=== PATIENT | female | born 1995 | race Caucasian/White ===

== ENCOUNTER 2020-02-24 17:17 | Inpatient (IN) | payer MEDICAID ==
[2020-02-24] MEDS ORDERED: Lactated Ringers 1,000 ML IV SCH (17:20)
[2020-02-24] MEDS ORDERED: Oxytocin/Normal Saline 30 UNIT/500 ML BAG ONE ×2 (17:35→20:21)
[2020-02-24] MEDS ORDERED: Ibuprofen 800 MG Tab ONE (17:52)
[2020-02-24] MEDS ORDERED: Oxytocin 10 Units/1 ML SDV IM PRN (17:59)
[2020-02-24] MEDS ORDERED: Misoprostol 400 MCG (4 X 100 MCG TAB) RECTAL PRN (17:59)
[2020-02-24] MEDS ORDERED: Diphtheria,Pertussis(Acell),Tetanus Vaccine 0.5 ML SDV IM ONE (17:59)
[2020-02-24] MEDS ORDERED: Zolpidem 5 MG Tab PO PRN (17:59)
[2020-02-24] MEDS ORDERED: Measles, Mumps & Rubella Vaccine 0.5 ML SDV SUBCUT ONE (17:59)
[2020-02-24] MEDS ORDERED: Acetaminophen 325 MG Tab PO PRN (17:59)
[2020-02-24] MEDS ORDERED: Simethicone 80 MG Tab.Chew PO PRN (17:59)
[2020-02-24] MEDS ORDERED: Carboprost Tromethamine 250 MCG/1 ML Amp IM PRN (17:59)
[2020-02-24] MEDS ORDERED: Tranexamic Acid 1,000 MG in Sodium Chloride 0.9% 100 ML IV PRN (17:59)
[2020-02-24] MEDS ORDERED: Sodium Chloride 0.9% 10 ML Syringe FLUSH PRN (17:59)
[2020-02-24] MEDS ORDERED: Benzocaine/Menthol 20%-0.5% Spray 56 GM Canister TOP PRN (17:59)
[2020-02-24] MEDS: Docusate Sodium 100 MG Cap PO PRN (20:27)
--- NOTE | 2020-02-25 08:39 | HP ---
PATIENT IDENTIFICATION: Clark Ingram is a 24-year-old, G2, P1-0-0-1, intrauterine , suspected term after Kay scoring of the , who presents after precipitous spontaneous vaginal delivery at home at approximately 1652 hours, brought in via ambulance with no noted care. HISTORY OF PRESENT ILLNESS: The patient states contractions started on the afternoon of 02/24/2020 increasing in frequency and intensity that she had to have the urge to push after she got out of the shower. She delivered at home on the floor with her older female relative, who was there, who is a POKER SUPERVISOR. There was no noted nuchal cords. Delivery was noted to be unremarkable and cord was doubly clamped and cut by ambulance crew upon arrival. Ambulance presented with the patient in the emergency room where she was further evaluated and treated as below. Records were called for, reviewed as below, and supplemented by the patient's history. ANTEPARTUM LABORATORIES: None as no care. OB HISTORY: Delivered 4 years ago in April, a spontaneous vaginal delivery in the [facility], that daughter is with the grandmother and Cheo currently. ALLERGIES: Zithromax and some sort of steroid. MEDICATIONS: None. PAST MEDICAL/PAST SURGICAL HISTORY: Remarkable for appendectomy at 18 years of age. Having a history of bronchitis versus pneumonia versus reactive airway disease when she was a child. She was on Singulair for this and was hospitalized at least once. She denies any recent use of breathing treatments or treatment such as Singulair. FAMILY HISTORY: Denies any anesthesia, bleeding problems, or immunodeficiency. States diabetes and cancer run in her family. SOCIAL HISTORY: The patient currently lives in the [facility]. Has been here since last year in the summer. She was working at [employer] until about November. She does admit to marijuana use. No other drug use elicited. She does smoke cigarettes as well. She denies any alcohol or other drug use. She presents by herself. Her daughter, 4 years of age, lives with grandmother in [facility]. REVIEW OF SYSTEMS: Otherwise reviewed and felt to be noncontributory other than she notes the vaginal delivery and vaginal bleeding upon arrival as well as the ER crew and ambulance. Otherwise, review of systems fully reviewed and felt to be noncontributory. OBJECTIVE: Appearance: Female breathing through her cramps and contractions with on her chest, currently breast feeding with the cord that was doubly clamped and cut, with a plastic clamp on the cord attached to the baby. Vital Signs: Taken in the ambulance were noted to be stable after delivery and on the floor 125/72, heart rate 105, O2 saturations 98%. The patient is afebrile. HEENT: Head atraumatic. EOMs intact. PERRLA. No scleral icterus. No obvious otorhinorrhea. Mucous membranes are moist. Neck: No obvious tenderness. Lungs: Clear to auscultation bilaterally. No increased work of breathing. Heart: S1, S2. Regular rate and rhythm. Minor tachycardia noted at times. Abdomen: Firm uterus was felt upon initial evaluation in the ER while the patient was on the gurney. Genitourinary: Vaginal bleeding was noted and therefore gentle cord traction was applied with fundal massage and placenta was delivered. It appeared to be in its entirety with a bauer of old darkish blood thereafter and then vaginal bleeding slowed significantly with fundal massage after that. Perineum, vagina, perirectal areas were then examined without any tears or lacerations. Extremities: No peripheral edema. Deep tendon reflexes 2 to 3 out of 4 bilaterally and symmetric in lower extremities. Psychiatric: Mood and affect congruent. Judgment and insight intact. Skin: Without any cyanosis, clubbing, or jaundice. LABORATORY DATA: Pending is no care lab panel. Review of chart does not reveal any type of blood type on all [facility] notes and nothing can be found in the [facility] notes from [facility]. ASSESSMENT: 1. Intrauterine -suspected term by Kay score on infant, suspected greater than 39 weeks. 2. Precipitous spontaneous vaginal delivery at home with delivery of placenta in the ER by Dr. Lujan as above. 3. No care. 4. Admitted use of marijuana during the . Urine drug screen is pending. 5. Group B streptococcus unknown. 6. Allergies to Zithromax and some sort of steroid. 7. G2, P1-0-0-1. PLAN: The patient will be admitted. CBC immediately with her no care labs, one to be repeated in the morning. As bleeding has significant decreased and vital signs stable, continue to follow closely at this point in time. I did discuss with the patient that we will need to follow baby and her for at least 48 hours with the history no care, GBS status being unknown, and we will continue to follow clinically and closely for any concerns with a history of drug use in the past for withdrawals in her child as well. The patient understands and agrees with the above treatment plan. [facility] /[id number]
--- NOTE | 2020-02-25 12:33 | PN ---
DATE: 02/25/2020 day #1. SUBJECTIVE: The patient is tolerating p.o., ambulating, urinating, passing flatus, wakes appropriately from sleep this morning. PHYSICAL EXAMINATION: Vital Signs: Heart rate 114, blood pressure 149/80 last night, temperature 98.1. I was called in regard to these blood pressures and labs were done as below. General: No headaches, visual changes, or upper abdominal pain noted. This morning patient wakes from sleep appropriately. Lungs: Clear to auscultation bilaterally. Heart: S1 and S2. Regular rate and rhythm. Abdomen: Firm uterus around -1 below umbilicus. Extremities: No peripheral edema. No calf pain. LABORATORY DATA: Labs from last night. PIH labs remarkable for a uric acid minimally elevated at 7. Urinalysis; 30 protein, 40 ketones, trace occult blood, 5 to 10 red cells, 0 to 5 white cells with a protein-creatinine ratio of 0.189. Urine drug screen positive for methamphetamine, amphetamine, MDMA, and THC with HIV antibodies/antigen negative. Pending are other no care labs. ASSESSMENT AND PLAN: 1. day #1, status post precipitous spontaneous vaginal delivery at home with no care. 2. Urine drug screen positive for methamphetamine, amphetamine, MDMA, and THC. We will need to follow closely. Social Service has been consulted. We will follow her baby closely as well. PLAN: I did discuss with the patient following closely today, possible discharge in approximately 48 hours after delivery tomorrow afternoon, evening, if everything goes well. She understands and agrees with the above treatment plan. In terms of the patient's hypertension, no concerns with preeclampsia noted at this point in time based on labs. We will continue to follow clinically and closely. No indications for treatment as no severe symptoms or severe readings at this point in time. [facility] /[id number]
[2020-02-25] MEDS: Ferrous Sulfate 325 MG Tab PO SCH (12:50)
[2020-02-25] MEDS: Prenatal Multivitamin with Calcium/Folic Acid/Iron Tab PO SCH (12:50)
[2020-02-25] MEDS: Docusate Sodium 100 MG Cap PO PRN (12:50)
[2020-02-26] MEDS: Docusate Sodium 100 MG Cap PO PRN (08:58)
[2020-02-26] MEDS: Prenatal Multivitamin with Calcium/Folic Acid/Iron Tab PO SCH (08:58)
[2020-02-26] MEDS: Ferrous Sulfate 325 MG Tab PO SCH (08:58)
--- NOTE | 2020-02-28 10:11 | DISCH ---
ADMIT DIAGNOSES: 1. Intrauterine , suspected term based on Kay score of her child. 2. Precipitous spontaneous vaginal delivery at home. 3. No care. 4. Admitted use of marijuana and urine drug screen returned positive for methamphetamine, amphetamine, MDMA, and THC upon admission. 5. GBS unknown. 6. Allergy to Zithromax and some sort of questionable steroid. 7. G2, P2-0-0-2. DISCHARGE DIAGNOSES: 1. Intrauterine , suspected term based on Kay score of her child. 2. Precipitous spontaneous vaginal delivery at home. 3. No care. 4. Admitted use of marijuana and urine drug screen returned positive for methamphetamine, amphetamine, MDMA, and THC upon admission. 5. GBS unknown. 6. Allergy to Zithromax and some sort of questionable steroid. 7. G2, P2-0-0-2. 8. hypertension-resolving over time with vital signs stable noted with no symptoms or signs and symptoms of preeclampsia. PROCEDURE PERFORMED: Delivery of placenta in the emergency room per Dr. Lujan. Please see H and P in regard to this. EBL - unknown. HISTORY OF PRESENT ILLNESS: Please see H and P. SUMMARY OF HOSPITAL COURSE: The patient was admitted on the above date with the above diagnosis after having history of precipitous spontaneous vaginal delivery at home. She presents through the ER via ambulance. Cord was already doubly clamped and cut, and delivery of placenta ensued in the emergency room. Thereafter, bleeding slowed significantly and the patient was brought to the OB floor. Please see further notes for further details. day #1, please see notes. day #2, date of discharge, the patient was tolerating p.o., ambulating, urinating, passing flatus, requesting discharge. PHYSICAL EXAMINATION: Vital Signs: Last set of vitals; temperature 97.9, heart rate 95, blood pressure 110/75, respiratory rate is 18. Lungs: Clear to auscultation bilaterally. Heart: S1, S2. Regular rate and rhythm. Abdomen: Firm uterus around the umbilicus. No peripheral edema. No calf pain. LABORATORY DATA: day #1, did reveal a white cell count of 9.9, hemoglobin 12.2 compared to admission hemoglobin 13.1, platelets of 255. Urine drug screen positive for the above. HIV did return nonreactive. CONDITION ON DISCHARGE COMPARED TO CONDITION ON ADMISSION: Improved. DISCHARGE INSTRUCTIONS: Diet as tolerated. Activity: No lifting more than 20 pounds. No sit-ups, straining, and pelvic rest for the next 6 weeks with immediate return to fertility discussed with the patient. Reasons to return or go to the emergency room were discussed with the patient in detail including, but not limited to, temperature greater than 100.4,foul- smelling discharge, red hot tender breasts, or increased vaginal bleeding. Discharge Medications: [id number] Tylenol or ibuprofen for pain, vitamins [id number] daily. Followup: Six-week for visit. Costume Seamstress have become involved and has had a temporary custody order given, and therefore, will not be sent home with mother and needs further evaluation and monitoring due to the history of drug use and concerns for withdrawals. [facility] /[id number]
== END 2020-02-26 12:30 | disposition home or self-care (01) | DRG 807 ==
LOC: UNDOADMIN 17:17 → DL.OB 17:17
PROVIDERS: ADMIT Family Medicine; ATTEND Family Medicine
PROC: 10E0XZZ Delivery of Products of Conception, External Approach (ICD-10-PCS; principal; 2020-02-24)
DX: O99.324 Drug use complicating childbirth (principal); Z37.0 Single live birth; F15.90 Other stimulant use, unspecified, uncomplicated; Z3A.39 39 weeks gestation of pregnancy; O62.3 Precipitate labor; Z88.1 Allergy status to other antibiotic agents; O16.5 Unspecified maternal hypertension, complicating the puerperium; Z28.82 Immunization not carried out because of caregiver refusal
CPT/HCPCS: 36415; 59414; 80305-QW; 80307; 81001; 82565; 82570; 83615; 84156; 84450; 84460; 84520; 84550; 85027; 86592; 86593; 86762; 86803; 86850; 86900; 86901; 87340; 87389; 87491; 87591; A9270-GY; J2590

== ENCOUNTER 2020-06-23 19:07 | Emergency (ER) | payer MEDICAID ==
[2020-06-23] MEDS ORDERED: Lidocaine 1% 30 ML SDV INJECT ONE (19:14)
[2020-06-23] MEDS ORDERED: Cephalexin 500 MG Cap PO ONE (19:14)
--- NOTE | 2020-06-23 19:19 | EDM.PDOC ---
ED HPI GENERAL MEDICAL PROBLEM - General Stated Complaint: EX BIT HER EAR Time Seen by Provider: 06/23/20 19:15 Source of Information: Reports: Patient History Limitations: Reports: No Limitations - History of Present Illness INITIAL COMMENTS - FREE TEXT/NARRATIVE: got bit by Ex on left ear. 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 ED EXAM, ENT - Physical Exam Exam: See Below Exam Limited By: No Limitations General Appearance: Alert, WD/WN, No Apparent Distress Ears: Hearing Grossly Normal, Other (left auricle 1 1/2" bit wound posterior) Mouth/Throat: Normal Inspection Head: Atraumatic Neck: Non-Tender, Full Range of Motion Respiratory/Chest: No Respiratory Distress Cardiovascular: Regular Rate, Rhythm GI/Abdominal: Soft, Non-Tender Neurological: Alert, Oriented, Normal Cognition, Normal Gait, No Motor/Sensory Deficits Psychiatric: Normal Affect, Normal Mood Skin: Warm, Dry, Normal Color Lymphatic: No Adenopathy ED ENT PROCEDURES - Laceration/Wound Repair Left Ear Lac/wound length in cm: 3 (left posterior auricle) Appearance: Subcutaneous, Linear, Clean Anesthetic Type: Local Local Anesthesia - Lidocaine (Xylocaine): 1% Plain Local Anesthetic Volume: 4cc Skin Prep: Chlorhexidine (Hibiciens) Saline irrigation (cc's): 20 Exploration/Debridement/Repair: Wound Explored, In a Bloodless Field, No Foreign Material Found Suture Size: 4-0 Suture Type: Nylon, Interrupted Sterile Dressing Applied: None Tetanus Status Addressed: Yes Complications: None Course - Vital Signs Last Recorded V/S: Last Vital Signs Temp 36.1 C 06/23/20 19:10 Pulse 104 H 06/23/20 19:10 Resp 18 06/23/20 19:10 BP 146/94 H 06/23/20 19:10 Pulse Ox 99 06/23/20 19:10 - Orders/Labs/Meds Meds: Medications Discontinued Medications Generic Name Dose Route Start Last Admin Trade Name Renetta PRN Reason Stop Dose Admin Cephalexin 500 mg 06/23/20 19:14 06/23/20 19:18 Keflex PO 06/23/20 19:15 500 mg ONETIME ONE Administration Lidocaine HCl 30 ml 06/23/20 19:14 06/23/20 19:18 Xylocaine-Mpf 1% INJECT 06/23/20 19:15 3 ml ONETIME ONE Administration Departure - Departure Time of Disposition: 19:32 Disposition: Home, Self-Care 01 Condition: Good Clinical Impression: Laceration of ear Qualifiers: Encounter type: initial encounter Laterality: left Qualified Code(s): S01.312A - Laceration without foreign body of left ear, initial encounter - Discharge Information Instructions: Sutured Wound Care, [id number] Additional Instructions: 1) keep area clean dry 2) suture removal 10 days rx given; keflex 250mg qid x 40 Sepsis Event Note (ED) - Focused Exam Vital Signs: Vital Signs Temp Pulse Resp BP Pulse Ox 06/23/20 19:10 36.1 C 104 H 18 146/94 H 99
== END 2020-06-23 19:37 | disposition home or self-care (01) ==
LOC: DL.ED 19:07
DX: S01.312A Laceration without foreign body of left ear, initial encounter (principal); Z88.1 Allergy status to other antibiotic agents; Z88.8 Allergy status to other drugs, medicaments and biological substances; W50.3XXA Accidental bite by another person, initial encounter
CPT/HCPCS: 12013; 99283; A9270; J2001

== ENCOUNTER 2020-08-18 15:00 | Emergency (ER) | payer MEDICAID ==
--- NOTE | 2020-08-18 18:50 | EDM.PDOC ---
Scribed by Rosalba Leonard 08/18/20 1180 for Gita Petersen NP ED HPI GENERAL MEDICAL PROBLEM - General Chief Complaint: ENT Problem Stated Complaint: UNKNOWN Time Seen by Provider: 08/18/20 16:44 Source of Information: Reports: Patient, RN, RN Notes Reviewed History Limitations: Reports: No Limitations - History of Present Illness INITIAL COMMENTS - FREE TEXT/NARRATIVE: Patient presents to ER with complaint of toothache. States this began months ago. She is to have a dentist appointment on Friday. She was eating a breakfast sandwish and bit into something hard and making the pain more severe on the right upper side. She rates pain is 9/10. She tried Tylenol but ti came back. Onset: Today Duration: Getting Worse Location: Reports: Other (tooth) Quality: Reports: Ache Severity: Severe Improves with: Reports: None Worsens with: Reports: None Associated Symptoms: Reports: No Other Symptoms Right Upper Pain Score (Numeric/FACES): 9 - Related Data Allergies Allergy/AdvReac Type Severity Reaction Status Date / Time azithromycin [From Zithromax] Allergy Nausea and Verified 08/18/20 16:41 Vomiting steroid Allergy Nausea and Uncoded 06/23/20 19:24 Vomiting Home Meds: Home Meds Desogestrel-Ethinyl Estradiol [Isibloom 28 Day Tablet] 1 each PO DAILY 06/23/20 [History] Past Medical History - Past Health History Medical/Surgical History: Denies Medical/Surgical History Respiratory History: Reports: Bronchitis, Recurrent Gastrointestinal History: Reports: Other (See Below) Other Gastrointestinal History: abdominal hernia, no repair 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 ED EXAM, ENT - Physical Exam Exam: See Below Exam Limited By: No Limitations General Appearance: Alert, WD/WN, No Apparent Distress Eye Exam: Bilateral Eye: EOMI, Normal Inspection, PERRL Ears: Normal External Exam, Normal Canal, Hearing Grossly Normal, Normal TMs Nose: Normal Inspection, Normal Mucousa, No Blood Mouth/Throat: Normal Inspection, Normal Gums, Normal Lips, Normal Oropharynx, Normal Teeth Head: Other (right cheek swollen from right upper molar) Neck: Normal Inspection, Supple, Non-Tender, Full Range of Motion Respiratory/Chest: No Respiratory Distress, Lungs Clear, Normal Breath Sounds, No Accessory Muscle Use, Chest Non-Tender Cardiovascular: Normal Peripheral Pulses, Regular Rate, Rhythm, No Edema, No Gallop, No JVD, No Murmur, No Rub GI/Abdominal: Normal Bowel Sounds, Soft, Non-Tender, No Organomegaly, No Distention, No Abnormal Bruit, No Mass (Female) Exam: Deferred Rectal (Female) Exam: Deferred Back: Normal Inspection, Full Range of Motion Extremities: Normal Inspection, Normal Range of Motion, Non-Tender, No Pedal Edema, Normal Capillary Refill Neurological: Alert, Oriented, CN II-XII Intact, Normal Cognition, Normal Gait, Normal Reflexes, No Motor/Sensory Deficits Psychiatric: Normal Affect, Normal Mood Skin: Warm, Dry, Intact, Normal Color, No Rash Lymphatic: No Adenopathy ED ENT PROCEDURES - Additional/Other Procedure(s) Other (Free Text) Procedure(s): Vivacaine used to numb at the inferior alveolar nerve. Patient states much relief. Course - Vital Signs Last Recorded V/S: Last Vital Signs Temp 98.4 F 08/18/20 16:36 Pulse 78 08/18/20 16:36 Resp 18 08/18/20 16:36 BP 136/73 08/18/20 16:36 Pulse Ox 98 08/18/20 16:36 Departure - Departure Time of Disposition: 17:12 Disposition: Home, Self-Care 01 Condition: Fair Clinical Impression: Dental abscess - Discharge Information *PRESCRIPTION DRUG MONITORING PROGRAM REVIEWED*: No *COPY OF PRESCRIPTION DRUG MONITORING REPORT IN PATIENT MUNIRA: No Instructions: Dental Abscess, [id number] Referrals: Muna Garcia MD [Primary Care Provider] - Forms: ED Department Discharge Additional Instructions: May use Tylenol and/or Ibuprofen as directed to pain RX: Amoxicillin FOllow up with your dentist on Friday Sepsis Event Note (ED) - Evaluation Sepsis Screening Result: No Definite Risk - Focused Exam Vital Signs: Vital Signs Temp Pulse Resp BP Pulse Ox 08/18/20 16:36 98.4 F 78 18 136/73 98 I have read and agree with the documentation that has been completed regarding this visit. By signing this record, I attest that the documentation was completed in my physical presence and is an accurate record of the encounter.
== END 2020-08-18 17:21 | disposition home or self-care (01) ==
LOC: DL.ED 15:00
DX: K04.7 Periapical abscess without sinus (principal); Z88.1 Allergy status to other antibiotic agents; Z88.8 Allergy status to other drugs, medicaments and biological substances
CPT/HCPCS: 99282

== ENCOUNTER 2021-12-05 17:43 | Emergency (ER) | payer MEDICAID ==
[2021-12-05] MEDS ORDERED: Methylergonovine 0.2 MG Tab PO ONE (17:44)
[2021-12-05] MEDS ORDERED: Sodium Chloride 0.9% 10 ML Syringe FLUSH PRN (17:48)
[2021-12-05] MEDS ORDERED: Sodium Chloride 0.9% 1,000 ML IV ONE (17:48)
[2021-12-05 18:52] LABS: ANION GAP 16.6 mEq/L (7-13); CHLORIDE,CL 102 mmol/L (98-107); SODIUM,NA 139 mmol/L (136-145)
[2021-12-05] MEDS ORDERED: Misoprostol 400 MCG (4 X 100 MCG TAB) RECTAL ONE (20:08)
[2021-12-05] MEDS ORDERED: fentaNYL 100 MCG/2 ML SDV IVPUSH ONE (20:27)
[2021-12-05] MEDS ORDERED: Methylergonovine 0.2 MG/1 ML Amp IM ONE (20:28)
[2021-12-05] MEDS ORDERED: Methylergonovine 0.2 MG Tab ONE (21:54)
[2021-12-07 13:47] LABS: C.TRACHOMATIS BY TMA Negative (Negative); N.GONORRHOEAE BY TMA Negative (Negative)
== END 2021-12-05 22:09 | disposition home or self-care (01) ==
LOC: DL.ED 17:43
DX: O03.80 Unspecified complication following complete or unspecified spontaneous abortion (principal); Z88.1 Allergy status to other antibiotic agents; Z88.8 Allergy status to other drugs, medicaments and biological substances; Z72.0 Tobacco use
CPT/HCPCS: 36415; 76815; 80053; 84702; 85025; 86900; 86901; 87210; 87491; 87591; 96372; 96374; 99284; A9270; J2210; J3010; J7030

== ENCOUNTER 2021-12-08 17:50 | Emergency (ER) | payer MEDICAID ==
[2021-12-08] MEDS ORDERED: Ondansetron 4 MG Tab.DIS PO ONE (17:51)
[2021-12-08] MEDS ORDERED: Sodium Chloride 0.9% 1,000 ML IV ONE ×2 (18:17→23:02)
[2021-12-08] MEDS ORDERED: Ondansetron 4 MG/2 ML SDV IVPUSH ONE (18:17)
[2021-12-08 18:31] LABS: ANION GAP 16.5 mEq/L (7-13); CHLORIDE,CL 105 mmol/L (98-107); SODIUM,NA 141 mmol/L (136-145)
[2021-12-08 19:16] LABS: CORONAVIRUS COVID-19 NAA NEGATIVE (NEGATIVE)
[2021-12-08] MEDS ORDERED: Ondansetron 4 MG Tab.DIS ONE (19:48)
[2021-12-08] MEDS ORDERED: Acetaminophen 500 MG Tab PO ONE (19:57)
[2021-12-08] MEDS ORDERED: cefTRIAXone 2 GM in Sodium Chloride 0.9% 100 ML IV ONE (22:17)
[2021-12-08] MEDS ORDERED: Iopamidol 612 MG/ML 100 ML Bottle IVPUSH ONE (23:23)
[2021-12-09 00:57] LABS: AMPHETAMINES,URINE POSITIVE (NEGATIVE); BARBITURATES,URINE NEGATIVE (NEGATIVE); BENZODIAZEPINE,URINE NEGATIVE (NEGATIVE); MDMA (ECSTASY), URINE NEGATIVE (NEGATIVE); METHADONE,URINE NEGATIVE (NEGATIVE); METHAMPHETAMINES,URINE POSITIVE (NEGATIVE); OPIATES,URINE NEGATIVE (NEGATIVE); OXYCODONE,URINE NEGATIVE (NEGATIVE); PHENCYCLIDINE,URINE NEGATIVE (NEGATIVE); TCA,URINE NEGATIVE (NEGATIVE)
[2021-12-09] MEDS ORDERED: metroNIDAZOLE 250 MG Tab PO ONE (01:41)
[2021-12-09] MEDS ORDERED: Ondansetron 4 MG/2 ML SDV IVPUSH ONE (01:43)
[2021-12-09] MEDS ORDERED: Acetaminophen 500 MG Tab PO ONE (01:54)
== END 2021-12-09 05:55 | disposition home or self-care (01) ==
LOC: DL.ED 17:50
DX: N30.00 Acute cystitis without hematuria (principal); N76.0 Acute vaginitis; N93.9 Abnormal uterine and vaginal bleeding, unspecified; B96.89 Other specified bacterial agents as the cause of diseases classified elsewhere; R11.2 Nausea with vomiting, unspecified; Z20.822 Contact with and (suspected) exposure to COVID-19; Z88.1 Allergy status to other antibiotic agents; Z88.8 Allergy status to other drugs, medicaments and biological substances
CPT/HCPCS: 0240U; 36415; 74177; 76815; 80053; 80305; 81001; 83605; 85025; 87040; 87086; 96365; 96375; 96376; 99284; 99285; A9270; J0696; J2405; J7030; Q9967

== ENCOUNTER 2023-08-27 07:01 | Inpatient (IN) | payer MEDICAID ==
[2023-08-27] MEDS ORDERED: Sodium Chloride 0.9% 10 ML Syringe FLUSH PRN (07:52)
[2023-08-27] MEDS ORDERED: Acetaminophen 325 MG Tab PO PRN ×2 (07:52→17:13)
[2023-08-27] MEDS ORDERED: Lidocaine 1% 30 ML SDV INJECT ONE (07:54)
[2023-08-27] MEDS ORDERED: Ondansetron 4 MG/2 ML SDV IVPUSH PRN (07:54)
[2023-08-27] MEDS ORDERED: Misoprostol 400 MCG (4 X 100 MCG TAB) RECTAL PRN (07:54)
[2023-08-27] MEDS ORDERED: Carboprost Tromethamine 250 MCG/1 ML Amp IM PRN (07:54)
[2023-08-27] MEDS ORDERED: Tranexamic Acid 1,000 MG in Sodium Chloride 0.9% 100 ML IV PRN (07:54)
[2023-08-27] MEDS ORDERED: Methylergonovine 0.2 MG/1 ML Amp IM PRN (07:54)
[2023-08-27] MEDS ORDERED: Oxytocin/Normal Saline 30 UNIT/500 ML BAG IV SCH (08:00)
[2023-08-27] MEDS ORDERED: Lactated Ringers 1,000 ML IV SCH (08:00)
[2023-08-27 08:01] LABS: HEMATOCRIT 36.2 % (37.0-47.0); HEMOGLOBIN 12.3 g/dL (12.0-16.0); MEAN CORPUSCULAR HEMOGLOBIN 29.1 pg (27.0-34.0); MEAN CORPUSCULAR VOLUME 85.8 fL (80-100); RED BLOOD CELL COUNT 4.22 10^6/uL (4.2-5.4); WHITE BLOOD CELL COUNT,WBC 8.8 10^3/uL (5.0-10.0)
[2023-08-27] MEDS ORDERED: Penicillin G Potassium 5 MILLUNITS in Sodium Chloride 0.9% 100 ML IV ONE (08:15)
[2023-08-27] MEDS: Lactated Ringers 1,000 ML IV SCH ×2 (08:33→12:16)
[2023-08-27 08:52] LABS: AMPHETAMINES,URINE NEGATIVE (NEGATIVE); BARBITURATES,URINE NEGATIVE (NEGATIVE); BENZODIAZEPINE,URINE NEGATIVE (NEGATIVE); MDMA (ECSTASY), URINE NEGATIVE (NEGATIVE); METHADONE,URINE NEGATIVE (NEGATIVE); METHAMPHETAMINES,URINE NEGATIVE (NEGATIVE); OPIATES,URINE NEGATIVE (NEGATIVE); OXYCODONE,URINE NEGATIVE (NEGATIVE); PHENCYCLIDINE,URINE NEGATIVE (NEGATIVE); TCA,URINE NEGATIVE (NEGATIVE)
[2023-08-27] MEDS: Penicillin G Potassium 3 MILLUNITS in Sodium Chloride 0.9% 100 ML IV SCH ×3 (12:05→20:26)
[2023-08-27] MEDS ORDERED: Bupivacaine 0.25% 10 ML SDV ONE (12:14)
[2023-08-27] MEDS ORDERED: fentaNYL 100 MCG/2 ML SDV ONE (12:14)
[2023-08-27] MEDS ORDERED: ePHEDrine 50 MG/ML SDV IVPUSH PRN (12:35)
[2023-08-27] MEDS ORDERED: Phenylephrine HCl In 0.9% NaCl 1 MG/10 ML Syringe IVPUSH PRN (12:35)
[2023-08-27] MEDS ORDERED: Ropivacaine 200 MG in Premix Bag 1 BAG EPIDUR SCH (12:45)
[2023-08-27] MEDS: Sodium Chloride 0.9% 10 ML Syringe FLUSH SCH (13:25)
[2023-08-27] MEDS ORDERED: Simethicone 80 MG Tab.Chew PO PRN (17:13)
[2023-08-27] MEDS ORDERED: Ibuprofen 800 MG Tab PO PRN (17:13)
[2023-08-27] MEDS ORDERED: Witch Hazel Medicated Pads 100/Jar TOP PRN (17:13)
[2023-08-27] MEDS ORDERED: Docusate Sodium 100 MG Cap PO PRN (17:13)
[2023-08-27] MEDS ORDERED: Benzocaine/Menthol 20%-0.5% Spray 78 GM Cannister TOP PRN (17:13)
[2023-08-27] MEDS ORDERED: Oxytocin 10 Units/1 ML SDV IM PRN (17:13)
[2023-08-28] MEDS: Sodium Chloride 0.9% 10 ML Syringe FLUSH SCH (08:48)
[2023-08-28] MEDS ORDERED: Prenatal Multivitamin with Calcium/Folic Acid/Iron Tab PO SCH (09:00)
[2023-08-28 18:16] LABS: HEMATOCRIT 33.3 % (37.0-47.0); HEMOGLOBIN 11.2 g/dL (12.0-16.0); MEAN CORPUSCULAR HEMOGLOBIN 29.2 pg (27.0-34.0); MEAN CORPUSCULAR HGB CONC 33.6 g/dL (33.0-35.0); MEAN CORPUSCULAR VOLUME 86.9 fL (80-100); RED BLOOD CELL COUNT 3.83 10^6/uL (4.2-5.4); WHITE BLOOD CELL COUNT,WBC 10.1 10^3/uL (5.0-10.0)
== END 2023-08-28 19:48 | disposition home or self-care (01) | DRG 806 ==
LOC: DL.OB 07:25 → OBSVTOIN 16:50 → MERGE 16:50 → DL.OB 16:50
PROVIDERS: ADMIT Family Medicine; ATTEND Family Medicine
PROC: 10E0XZZ Delivery of Products of Conception, External Approach (ICD-10-PCS; principal; 2023-08-27)
PROC: 10907ZC Drainage of Amniotic Fluid, Therapeutic from Products of Conception, Via Natural or Artificial Opening (ICD-10-PCS; 2023-08-27)
PROC: 3E0R3BZ Introduction of Anesthetic Agent into Spinal Canal, Percutaneous Approach (ICD-10-PCS; 2023-08-27)
PROC: 00HU33Z Insertion of Infusion Device into Spinal Canal, Percutaneous Approach (ICD-10-PCS; 2023-08-27)
DX: O99.324 Drug use complicating childbirth (principal); O98.42 Viral hepatitis complicating childbirth; Z37.0 Single live birth; O99.824 Streptococcus B carrier state complicating childbirth; O99.334 Smoking (tobacco) complicating childbirth; B19.20 Unspecified viral hepatitis C without hepatic coma; F17.210 Nicotine dependence, cigarettes, uncomplicated; F12.10 Cannabis abuse, uncomplicated; Z90.49 Acquired absence of other specified parts of digestive tract; Z3A.40 40 weeks gestation of pregnancy; Z88.1 Allergy status to other antibiotic agents
CPT/HCPCS: 01967; 36415; 51702; 59409; 80305-QW; 85027; A9270-GY; J2540; J2590; J2795; J3490; J7120